=== PATIENT | male | born 1935 | race Two or more races ===

== ENCOUNTER 2023-09-13 09:35 | Inpatient (IN) | payer OTHER, MEDICAID ==
[~2023-09-13] VITALS: Ht 162.6 cm; Wt 57.1 kg
[~2023-09-13 09:35] MED LIST: ASPI-498 PO; ATOR20TA50 PO; CALALOT17; DIPH25TA26; DUTA0.5C11; FURO20TA3 PO; LISI10TA34 PO; METF-370; SITA50TA; TAMS-35
[2023-09-13 10:25] LABS: Basophils # (auto) 0 10 ^3/uL (0-0.2); Basophils % (auto) 0.1 % (0.0-2.0); Eosinophils # (auto) 0.1 10 ^3/uL (0-0.8); Hemoglobin 7.4 g/dL (13.5-17.5); Monocytes # (auto) 0.9 10 ^3/uL (0-1.3); Red Cell Distribution Width 15.4 % (11.8-14.3); White Blood Cell 23.4 10^3/uL (4.4-10.8)
[2023-09-13 10:27] LABS: Eosinophils % (auto) 0.3 % (0.0-7.0); Hematocrit 22.9 % (41.0-53.0); Lymphocytes % (auto) 4.5 % (10.0-50.0); Mean Corpuscular Hemoglobin 28.4 pg (28.0-32.0); Mean Corpuscular Hgb Conc. 32.3 g/dL (32.0-36.0); Mean Corpuscular Volume 88.1 fL (80.0-100.0); Monocytes % (auto) 3.9 % (0.0-12.0); Neutrophils # (auto) 21.3 10 ^3/uL (1.6-8.6); Neutrophils % (auto) 91.2 % (37.0-80.0)
[2023-09-13] MEDS ORDERED: SODIUM CHLORIDE 0.9% 1,000 ML IV ONE ×2 (10:30)
[2023-09-13 10:35] LABS: Alanine Aminotransferase 16 U/L (7-40); Albumin 3.1 g/dL (3.2-4.8); Alkaline Phosphatase 74 U/L (46-116); Anion Gap 7 (5-15); Aspartate Aminotransferase 27 U/L (13-40); BUN/Creatinine Ratio 46.2 (10.0-20.0); Bilirubin, Total 0.7 mg/dL (0.2-1.0); Blood Urea Nitrogen 78 mg/dL (9-23); Carbon Dioxide 25 mmol/L (20-30); Chloride 102 mmol/L (98-107); Glucose 231 mg/dL (74-106); Potassium 5.5 mmol/L (3.5-5.1); Sodium 134 mmol/L (136-145)
[2023-09-13 11:25] VITALS: PULSE 101; RESP 19; O2SAT 99
[2023-09-13 12:14] LABS: Amphetamine Screen, Urine Neg (NEGATIVE)
[2023-09-13 12:15] LABS: Barbiturate Scree,Urine Neg (NEGATIVE); Benzodiazephine Screen, Urine Neg (NEGATIVE); Cannabinoid Screen, Urine Neg (NEGATIVE); Cocaine Screen, Urine Neg (NEGATIVE); Opiate Scree,Urine Neg (NEGATIVE); Phencyclidine Screen, Urine Neg (NEGATIVE)
[2023-09-13 12:28] LABS: Urine Bacteria NONE SEEN /hpf (None Seen); Urine Blood Negative /uL (Negative); Urine Clarity Clear (Clear); Urine Color Yellow (Yellow); Urine Protein, UAD Negative (Negative); Urine Specific Gravity 1.012 (1.001-1.035); Urine Urobilinogen Normal (Negative); Urine WBC 1 /hpf (0 - 3)
[2023-09-13] MEDS ORDERED: cefTRIAXone 1GM/50ML D5W 50 ML IV ONE (15:45)
[2023-09-13] MEDS ORDERED: SODIUM CHLORIDE 0.9% 500 ML IV ONE ×2 (16:15→18:45)
[2023-09-13] MEDS ORDERED: DOPamine 1600MCG/ML D5W 250 ML IV SCH (18:00)
[2023-09-13] MEDS: NOREPINEPHRINE 8 MG/250ML KIT 250 ML IV SCH (19:10)
[2023-09-13 19:30] VITALS: PULSE 111; RESP 16; O2SAT 99
[2023-09-13 19:49] LABS: INR 1.11 (0.9-1.15); Partial Thromboplastin Time 32.6 SEC (24.5-34.5); Prothrombin Time 11.6 sec (9.3-11.8)
[2023-09-13] MEDS ORDERED: NITROGLYCERIN 0.4 MG SL TAB SL PRN (20:45)
[2023-09-13] MEDS ORDERED: ACETAMINOPHEN 325 MG TAB PO PRN (20:45)
[2023-09-13] MEDS ORDERED: AZITHROMYCIN 500MG/ 250ML 250 ML IV ONE (20:45)
[2023-09-13] MEDS ORDERED: ONDANSETRON HCL 4 MG/2 ML VIAL IV PRN (20:45)
[2023-09-13] MEDS ORDERED: DEXTROSE (50%) 50ML SYRG IV PRN (20:45)
[2023-09-13] MEDS ORDERED: MORPHINE SULFATE INJ 2 MG/ml SYRG IV PRN (20:45)
[2023-09-13] MEDS: SODIUM CHLORIDE 0.9% 1,000 ML IV SCH (21:30)
[2023-09-13 21:51] LABS: Basophils # (auto) 0 10 ^3/uL (0-0.2); Basophils % (auto) 0.1 % (0.0-2.0); Eosinophils # (auto) 0.3 10 ^3/uL (0-0.8); Lymphocytes # (auto) 1.2 10 ^3/uL (0.4-5.4); Monocytes # (auto) 0.8 10 ^3/uL (0-1.3); Neutrophils % (auto) 87.7 % (37.0-80.0)
[2023-09-13 21:53] LABS: Eosinophils % (auto) 1.5 % (0.0-7.0); Hematocrit 21.5 % (41.0-53.0); Lymphocytes % (auto) 6.6 % (10.0-50.0); Mean Corpuscular Hemoglobin 28.8 pg (28.0-32.0); Mean Corpuscular Hgb Conc. 31.9 g/dL (32.0-36.0); Mean Corpuscular Volume 90.2 fL (80.0-100.0); Monocytes % (auto) 4.1 % (0.0-12.0); Neutrophils # (auto) 16.3 10 ^3/uL (1.6-8.6); Nucleated Red Blood Cells % 0.1 %; Red Blood Cells 2.39 10^6/uL (4.5-5.90); Red Cell Distribution Width 15.2 % (11.8-14.3); White Blood Cell 18.6 10^3/uL (4.4-10.8)
[2023-09-13 21:57] LABS: Hemoglobin 6.9 g/dL (13.5-17.5)
[2023-09-13 21:59] LABS: Alanine Aminotransferase 10 U/L (7-40); Alkaline Phosphatase 70 U/L (46-116); Calcium 8.1 mg/dL (8.7-10.4); Carbon Dioxide 23 mmol/L (20-30)
[2023-09-13 22:00] LABS: Albumin 2.8 g/dL (3.2-4.8); Anion Gap 6 (5-15); Aspartate Aminotransferase 24 U/L (13-40); BUN/Creatinine Ratio 39.6 (10.0-20.0); Bilirubin, Total 0.4 mg/dL (0.2-1.0); Potassium 4.8 mmol/L (3.5-5.1); Sodium 141 mmol/L (136-145); Total Protein 4.6 g/dL (5.7-8.2)
[2023-09-13 22:11] LABS: Blood Urea Nitrogen 44 mg/dL (9-23); Chloride 112 mmol/L (98-107)
[2023-09-13 22:31] LABS: Glucose 190 mg/dL (74-106)
[2023-09-14] VITALS (90 sets, daily range): BP systolic 62–134; BP diastolic 13–93; PULSE 84–127; RESP 12–28; TEMP 97.8–98.7; O2SAT 88–100
[2023-09-14] MEDS: ACCU-CHEK COMFORT CURVE STRIP VI SCH ×5 (00:09→23:33)
[2023-09-14] MEDS: InsuLIN REG 1unit/0.01ml Soln (100units/ml) SC SCH ×5 (00:25→23:33)
[2023-09-14] MEDS: NOREPINEPHRINE 8 MG/250ML KIT 250 ML IV SCH ×2 (05:17→13:10)
[2023-09-14 05:57] LABS: Basophils # (auto) 0 10 ^3/uL (0-0.2); Basophils % (auto) 0.1 % (0.0-2.0); Eosinophils # (auto) 0.2 10 ^3/uL (0-0.8); Eosinophils % (auto) 1.1 % (0.0-7.0); Hematocrit 30.6 % (41.0-53.0); Hemoglobin 9.9 g/dL (13.5-17.5); Lymphocytes # (auto) 1.3 10 ^3/uL (0.4-5.4); Lymphocytes % (auto) 6.4 % (10.0-50.0); Mean Corpuscular Hemoglobin 28.9 pg (28.0-32.0); Mean Corpuscular Hgb Conc. 32.3 g/dL (32.0-36.0); Mean Corpuscular Volume 89.4 fL (80.0-100.0); Monocytes % (auto) 5.1 % (0.0-12.0); Neutrophils # (auto) 18.1 10 ^3/uL (1.6-8.6); Neutrophils % (auto) 87.3 % (37.0-80.0); Nucleated Red Blood Cells % 0.1 %; Red Blood Cells 3.43 10^6/uL (4.5-5.90); Red Cell Distribution Width 14.4 % (11.8-14.3); White Blood Cell 20.7 10^3/uL (4.4-10.8)
[2023-09-14 06:08] LABS: Alanine Aminotransferase 14 U/L (7-40); Albumin 3.1 g/dL (3.2-4.8); Alkaline Phosphatase 79 U/L (46-116); Anion Gap 9 (5-15); BUN/Creatinine Ratio 31.3 (10.0-20.0); Calcium 8.4 mg/dL (8.7-10.4); Carbon Dioxide 19 mmol/L (20-30); Chloride 111 mmol/L (98-107); Potassium 4.3 mmol/L (3.5-5.1); Sodium 139 mmol/L (136-145)
[2023-09-14 06:09] LABS: Aspartate Aminotransferase 28 U/L (13-40); Bilirubin, Total 0.6 mg/dL (0.2-1.0); Total Protein 5.2 g/dL (5.7-8.2)
[2023-09-14 06:12] LABS: Blood Urea Nitrogen 31 mg/dL (9-23)
[2023-09-14 08:00] LABS: Glucose 207 mg/dL (74-106)
[2023-09-14] MEDS: SODIUM CHLORIDE 0.9% 1,000 ML IV SCH ×2 (08:35→19:49)
[2023-09-14] MEDS ORDERED: cefTRIAXone 1GM/50ML D5W 50 ML IV SCH (09:00)
[2023-09-14] MEDS ORDERED: LORazepam 2MG/ML-1ML VIAL IV PRN (09:45)
[2023-09-14] MEDS ORDERED: AZITHROMYCIN 500MG/ 250ML 250 ML IV SCH (10:00)
[2023-09-14] MEDS: DOXYCYCLINE 100MG/250ML 250 ML IV SCH ×2 (10:30→20:59)
[2023-09-14] MEDS ORDERED: LACTULOSE 20Gm/30ML SOLN PO ONE (10:30)
[2023-09-14 12:33] LABS: Folate (Folic Acid) 16.63 ng/mL (>5.38)
[2023-09-14] MEDS ORDERED: MORPHINE SULFATE INJ 2 MG/ml SYRG IV ONE (12:45)
[2023-09-14] MEDS ORDERED: MORPHINE SULFATE INJ 2 MG/ml SYRG IV PRN (13:15)
[2023-09-14] MEDS ORDERED: ACETAMINOPHEN 500 MG TAB PO PRN (13:15)
[2023-09-14] MEDS ORDERED: ONDANSETRON HCL 4 MG/2 ML VIAL IV PRN (13:15)
[2023-09-14] MEDS ORDERED: HYDROcodone-ACET 5/325MG TAB PO PRN (13:15)
[2023-09-14] MEDS: PIPERACILLIN-TAZOB 3.375GM 100 ML IV SCH ×2 (14:00→20:59)
[2023-09-14] MEDS ORDERED: LIDOCAINE 1% (LOCAL ANESTH.) PF 5ml SDV ID ONE (14:45)
[2023-09-14] MEDS: DOCUSATE SOD 100 MG CAP PO SCH (20:59)
[2023-09-14] MEDS: SODIUM CHLOR 0.9% PF (SALINE LOCK) 10ML VIAL/SYR IV SCH (21:00)
[2023-09-15] VITALS (92 sets, daily range): BP systolic 87–140; BP diastolic 40–89; PULSE 80–135; RESP 10–27; TEMP 98–98.4; O2SAT 91–100
[2023-09-15 04:22] LABS: Hemoglobin 7.6 g/dL (13.5-17.5)
[2023-09-15 04:26] LABS: Basophils # (auto) 0 10 ^3/uL (0-0.2); Basophils % (auto) 0.1 % (0.0-2.0); Eosinophils # (auto) 0.4 10 ^3/uL (0-0.8); Eosinophils % (auto) 4.5 % (0.0-7.0); Hematocrit 22.7 % (41.0-53.0); Lymphocytes # (auto) 1.5 10 ^3/uL (0.4-5.4); Lymphocytes % (auto) 16.4 % (10.0-50.0); Mean Corpuscular Hemoglobin 29.7 pg (28.0-32.0); Mean Corpuscular Hgb Conc. 33.5 g/dL (32.0-36.0); Mean Corpuscular Volume 88.8 fL (80.0-100.0); Monocytes # (auto) 0.6 10 ^3/uL (0-1.3); Monocytes % (auto) 6.3 % (0.0-12.0); Neutrophils # (auto) 6.6 10 ^3/uL (1.6-8.6); Neutrophils % (auto) 72.7 % (37.0-80.0); Nucleated Red Blood Cells % 0.1 %; Red Blood Cells 2.56 10^6/uL (4.5-5.90); Red Cell Distribution Width 14.4 % (11.8-14.3)
[2023-09-15 04:39] LABS: Alanine Aminotransferase 17 U/L (7-40); Albumin 2.4 g/dL (3.2-4.8); Alkaline Phosphatase 61 U/L (46-116); Aspartate Aminotransferase 22 U/L (13-40); BUN/Creatinine Ratio 40.3 (10.0-20.0); Blood Urea Nitrogen 27 mg/dL (9-23); Calcium 7.6 mg/dL (8.5-10.1); Chloride 111 mmol/L (98-107); Glucose 123 mg/dL (74-106); Potassium 3.6 mmol/L (3.5-5.1); Sodium 140 mmol/L (136-145)
[2023-09-15 04:40] LABS: Bilirubin, Total 0.5 mg/dL (0.2-1.0); Total Protein 4.1 g/dL (5.7-8.2)
[2023-09-15 04:48] LABS: Anion Gap 7 (5-15); Carbon Dioxide 22 mmol/L (20-30)
[2023-09-15] MEDS: PIPERACILLIN-TAZOB 3.375GM 100 ML IV SCH ×3 (05:15→21:23)
[2023-09-15] MEDS: InsuLIN REG 1unit/0.01ml Soln (100units/ml) SC SCH ×4 (05:19→23:27)
[2023-09-15] MEDS: ACCU-CHEK COMFORT CURVE STRIP VI SCH ×4 (05:19→23:32)
[2023-09-15] MEDS: SODIUM CHLOR 0.9% PF (SALINE LOCK) 10ML VIAL/SYR IV SCH ×2 (07:26→21:24)
[2023-09-15] MEDS: PANTOPRAZOLE 40 MG TAB PO SCH (08:13)
[2023-09-15] MEDS: DOXYCYCLINE 100MG/250ML 250 ML IV SCH ×2 (08:13→21:23)
[2023-09-15] MEDS: DOCUSATE SOD 100 MG CAP PO SCH ×2 (08:14→21:23)
[2023-09-15] MEDS: DexAMETHasone 4 MG TAB PO SCH (08:53)
[2023-09-15] MEDS: SODIUM CHLORIDE 0.9% 1,000 ML IV SCH ×2 (10:24→23:32)
[2023-09-15] MEDS: NOREPINEPHRINE 8 MG/250ML KIT 250 ML IV SCH (13:13)
[2023-09-16] VITALS (53 sets, daily range): BP systolic 93–147; BP diastolic 42–74; PULSE 71–110; RESP 11–25; TEMP 97.7–98.4; O2SAT 92–100
[2023-09-16 04:23] LABS: Basophils # (auto) 0 10 ^3/uL (0-0.2); Eosinophils # (auto) 0 10 ^3/uL (0-0.8); Monocytes # (auto) 0.3 10 ^3/uL (0-1.3); Neutrophils # (auto) 7.2 10 ^3/uL (1.6-8.6); Red Cell Distribution Width 14.6 % (11.8-14.3)
[2023-09-16 04:24] LABS: Basophils % (auto) 0.1 % (0.0-2.0); Hematocrit 23.8 % (41.0-53.0); Hemoglobin 7.9 g/dL (13.5-17.5); Lymphocytes % (auto) 12.2 % (10.0-50.0); Mean Corpuscular Hemoglobin 29.4 pg (28.0-32.0); Mean Corpuscular Hgb Conc. 33.4 g/dL (32.0-36.0); Mean Corpuscular Volume 88.2 fL (80.0-100.0); Monocytes % (auto) 3.2 % (0.0-12.0); Neutrophils % (auto) 84.5 % (37.0-80.0); White Blood Cell 8.5 10^3/uL (4.4-10.8)
[2023-09-16 04:32] LABS: Chloride 110 mmol/L (98-107); Potassium 3.8 mmol/L (3.5-5.1)
[2023-09-16 04:33] LABS: Anion Gap 2 (5-15); Calcium 7.6 mg/dL (8.7-10.4); Carbon Dioxide 22 mmol/L (20-30)
[2023-09-16 04:38] LABS: BUN/Creatinine Ratio 25.4 (10.0-20.0); Blood Urea Nitrogen 16 mg/dL (9-23); Glucose 205 mg/dL (74-106)
[2023-09-16 04:42] LABS: Sodium 134 mmol/L (136-145)
[2023-09-16] MEDS: PIPERACILLIN-TAZOB 3.375GM 100 ML IV SCH ×3 (05:26→21:38)
[2023-09-16] MEDS: InsuLIN REG 1unit/0.01ml Soln (100units/ml) SC SCH ×4 (05:30→23:26)
[2023-09-16] MEDS: ACCU-CHEK COMFORT CURVE STRIP VI SCH ×4 (05:45→23:18)
[2023-09-16] MEDS: SODIUM CHLOR 0.9% PF (SALINE LOCK) 10ML VIAL/SYR IV SCH ×2 (09:30→21:39)
[2023-09-16] MEDS: PANTOPRAZOLE 40 MG TAB PO SCH (09:31)
[2023-09-16] MEDS: DexAMETHasone 4 MG TAB PO SCH (09:31)
[2023-09-16] MEDS: DOXYCYCLINE 100MG/250ML 250 ML IV SCH ×2 (09:31→21:38)
[2023-09-16] MEDS: DOCUSATE SOD 100 MG CAP PO SCH ×2 (09:31→21:38)
[2023-09-16] MEDS: SODIUM CHLORIDE 0.9% 1,000 ML IV SCH ×2 (11:15→17:26)
[2023-09-16] MEDS: NOREPINEPHRINE 8 MG/250ML KIT 250 ML IV SCH (17:22)
[2023-09-17] VITALS (30 sets, daily range): BP systolic 105–163; BP diastolic 58–79; PULSE 68–112; RESP 12–30; TEMP 97.7–98.8; O2SAT 96–100
[2023-09-17] MEDS: SODIUM CHLORIDE 0.9% 1,000 ML IV SCH (05:50)
[2023-09-17] MEDS: PIPERACILLIN-TAZOB 3.375GM 100 ML IV SCH ×3 (05:50→22:00)
[2023-09-17] MEDS: ACCU-CHEK COMFORT CURVE STRIP VI SCH ×3 (05:53→18:11)
[2023-09-17] MEDS: InsuLIN REG 1unit/0.01ml Soln (100units/ml) SC SCH ×3 (05:55→18:14)
[2023-09-17 06:01] LABS: Basophils # (auto) 0 10 ^3/uL (0-0.2); Eosinophils # (auto) 0 10 ^3/uL (0-0.8); Eosinophils % (auto) 0.1 % (0.0-7.0); Hemoglobin 8.4 g/dL (13.5-17.5); Lymphocytes # (auto) 1.4 10 ^3/uL (0.4-5.4); Lymphocytes % (auto) 12.3 % (10.0-50.0); Monocytes # (auto) 0.7 10 ^3/uL (0-1.3); Neutrophils # (auto) 9.3 10 ^3/uL (1.6-8.6)
[2023-09-17 06:03] LABS: Hematocrit 24.9 % (41.0-53.0); Mean Corpuscular Hemoglobin 29.9 pg (28.0-32.0); Mean Corpuscular Hgb Conc. 33.6 g/dL (32.0-36.0); Mean Corpuscular Volume 88.8 fL (80.0-100.0); Monocytes % (auto) 6.4 % (0.0-12.0); Neutrophils % (auto) 81.2 % (37.0-80.0); Red Cell Distribution Width 14.6 % (11.8-14.3); White Blood Cell 11.5 10^3/uL (4.4-10.8)
[2023-09-17 06:08] LABS: Chloride 110 mmol/L (98-107); Potassium 3.7 mmol/L (3.5-5.1); Sodium 136 mmol/L (136-145)
[2023-09-17 06:09] LABS: Anion Gap 4 (5-15); Calcium 7.6 mg/dL (8.7-10.4); Carbon Dioxide 22 mmol/L (20-30)
[2023-09-17 06:14] LABS: BUN/Creatinine Ratio 21.3 (10.0-20.0); Blood Urea Nitrogen 13 mg/dL (9-23); Glucose 195 mg/dL (74-106)
[2023-09-17] MEDS: DOXYCYCLINE 100MG/250ML 250 ML IV SCH ×2 (09:45→22:30)
[2023-09-17] MEDS: PANTOPRAZOLE 40 MG TAB PO SCH (09:45)
[2023-09-17] MEDS: DOCUSATE SOD 100 MG CAP PO SCH ×2 (09:45→22:00)
[2023-09-17] MEDS: SODIUM CHLOR 0.9% PF (SALINE LOCK) 10ML VIAL/SYR IV SCH ×2 (09:48→22:00)
[2023-09-17] MEDS: DexAMETHasone 4 MG TAB PO SCH (09:49)
[2023-09-17] MEDS: NOREPINEPHRINE 8 MG/250ML KIT 250 ML IV SCH (18:45)
[2023-09-18] VITALS (23 sets, daily range): BP systolic 78–134; BP diastolic 42–70; PULSE 62–100; RESP 12–30; TEMP 97–98.6; O2SAT 96–100
[2023-09-18] MEDS: ACCU-CHEK COMFORT CURVE STRIP VI SCH ×5 (00:23→23:52)
[2023-09-18] MEDS: InsuLIN REG 1unit/0.01ml Soln (100units/ml) SC SCH ×5 (00:28→23:53)
[2023-09-18] MEDS: SODIUM CHLORIDE 0.9% 1,000 ML IV SCH (08:50)
[2023-09-18] MEDS: PIPERACILLIN-TAZOB 3.375GM 100 ML IV SCH ×3 (08:50→21:46)
[2023-09-18] MEDS: DOCUSATE SOD 100 MG CAP PO SCH ×2 (10:06→21:47)
[2023-09-18] MEDS: PANTOPRAZOLE 40 MG TAB PO SCH (10:06)
[2023-09-18] MEDS: DexAMETHasone 4 MG TAB PO SCH (10:09)
[2023-09-18] MEDS: SODIUM CHLOR 0.9% PF (SALINE LOCK) 10ML VIAL/SYR IV SCH ×2 (10:11→21:47)
[2023-09-18] MEDS ORDERED: FUROSEMIDE 40 MG/4 ML VIAL IV ONE (11:15)
[2023-09-18] MEDS: DOXYCYCLINE 100MG/250ML 250 ML IV SCH ×2 (11:26→23:01)
[2023-09-19] VITALS (30 sets, daily range): BP systolic 107–139; BP diastolic 48–98; PULSE 61–88; RESP 11–28; TEMP 97.6–98.2; O2SAT 94–99
[2023-09-19] MEDS: ACCU-CHEK COMFORT CURVE STRIP VI SCH ×4 (06:05→23:48)
[2023-09-19] MEDS: PIPERACILLIN-TAZOB 3.375GM 100 ML IV SCH ×3 (06:05→21:58)
[2023-09-19] MEDS: InsuLIN REG 1unit/0.01ml Soln (100units/ml) SC SCH ×4 (06:07→23:47)
[2023-09-19 06:29] LABS: Anion Gap 8 (5-15); Carbon Dioxide 22 mmol/L (20-30); Chloride 108 mmol/L (98-107); Potassium 3.2 mmol/L (3.5-5.1); Sodium 138 mmol/L (136-145)
[2023-09-19 06:30] LABS: Calcium 7.8 mg/dL (8.7-10.4); Hematocrit 27.8 % (41.0-53.0); Hemoglobin 9.2 g/dL (13.5-17.5); Red Blood Cells 3.16 10^6/uL (4.5-5.90); Red Cell Distribution Width 15.1 % (11.8-14.3); White Blood Cell 13.5 10^3/uL (4.4-10.8)
[2023-09-19 06:34] LABS: Band Neutrophils % (manual) 0; Basophils % (manual) 0 (0.0-2.0); Blast Cells 0; Eosinophils % (manual) 0 (0-7); Metamyelocytes % 0; Myelocytes % 0; Promyelocytes % 0; Reactive Lymphocytes 0
[2023-09-19 06:35] LABS: Glucose 159 mg/dL (74-106)
[2023-09-19 06:36] LABS: BUN/Creatinine Ratio 16.9 (10.0-20.0); Blood Urea Nitrogen 13 mg/dL (9-23); Magnesium 1.5 mg/dL (1.6-2.6)
[2023-09-19 08:17] LABS: Lymphocytes % (manual) 16 (10.0-50.0); Monocytes % (manual) 7 (0-12)
[2023-09-19 08:18] LABS: Anisocytosis Slight; Platelet Estimate Adequate
[2023-09-19] MEDS ORDERED: POTASSIUM CHL 20 Meq TABLET PO ONE (08:30)
[2023-09-19] MEDS: DOCUSATE SOD 100 MG CAP PO SCH ×2 (10:00→21:58)
[2023-09-19] MEDS: MAGNESIUM SULFATE 1GM/100ML 100 ML IV SCH ×2 (10:16→11:18)
[2023-09-19] MEDS: DOXYCYCLINE 100MG/250ML 250 ML IV SCH ×2 (10:16→22:01)
[2023-09-19] MEDS: DexAMETHasone 4 MG TAB PO SCH (10:16)
[2023-09-19] MEDS: PANTOPRAZOLE 40 MG TAB PO SCH (10:16)
[2023-09-19] MEDS: SODIUM CHLOR 0.9% PF (SALINE LOCK) 10ML VIAL/SYR IV SCH ×2 (10:18→21:53)
[2023-09-20] MEDS: PIPERACILLIN-TAZOB 3.375GM 100 ML IV SCH ×2 (05:31→14:27)
[2023-09-20] MEDS: ACCU-CHEK COMFORT CURVE STRIP VI SCH ×3 (05:37→17:35)
[2023-09-20 05:55] LABS: Calcium 7.5 mg/dL (8.7-10.4); Chloride 108 mmol/L (98-107); Potassium 3.6 mmol/L (3.5-5.1); Sodium 137 mmol/L (136-145)
[2023-09-20 05:56] LABS: Anion Gap 7 (5-15); Carbon Dioxide 22 mmol/L (20-30)
[2023-09-20] MEDS: InsuLIN REG 1unit/0.01ml Soln (100units/ml) SC SCH ×3 (05:56→17:50)
[2023-09-20 06:01] LABS: Glucose 211 mg/dL (74-106)
[2023-09-20 06:02] LABS: BUN/Creatinine Ratio 17.1 (10.0-20.0); Blood Urea Nitrogen 13 mg/dL (9-23); Magnesium 1.6 mg/dL (1.6-2.6)
[2023-09-20 07:11] LABS: Hematocrit 27.3 % (41.0-53.0); Hemoglobin 8.8 g/dL (13.5-17.5); Mean Corpuscular Hemoglobin 29.2 pg (28.0-32.0); Mean Corpuscular Hgb Conc. 32.1 g/dL (32.0-36.0); Red Cell Distribution Width 15.4 % (11.8-14.3); White Blood Cell 12.9 10^3/uL (4.4-10.8)
[2023-09-20 07:21] LABS: Band Neutrophils % (manual) 0; Basophils % (manual) 0 (0.0-2.0); Blast Cells 0; Eosinophils % (manual) 0 (0-7); Myelocytes % 0; Promyelocytes % 0; Reactive Lymphocytes 0
[2023-09-20 08:00] VITALS: PULSE 88; RESP 23; O2SAT 95
[2023-09-20 08:41] LABS: Lymphocytes % (manual) 11 (10.0-50.0); Metamyelocytes % 1; Monocytes % (manual) 5 (0-12); Platelet Estimate Adequate
[2023-09-20 09:00] VITALS: BP 108/56; PULSE 72; RESP 18; TEMP 97.8; O2SAT 94
[2023-09-20] MEDS: DexAMETHasone 4 MG TAB PO SCH (09:55)
[2023-09-20] MEDS: PANTOPRAZOLE 40 MG TAB PO SCH (09:56)
[2023-09-20] MEDS: DOCUSATE SOD 100 MG CAP PO SCH (09:56)
[2023-09-20] MEDS: DOXYCYCLINE 100MG/250ML 250 ML IV SCH (09:59)
[2023-09-20] MEDS: SODIUM CHLOR 0.9% PF (SALINE LOCK) 10ML VIAL/SYR IV SCH (09:59)
[2023-09-20 13:00] VITALS: BP 105/48; PULSE 68; RESP 16; TEMP 98.2; O2SAT 92
[2023-09-20 17:00] VITALS: BP 115/53; PULSE 75; RESP 16; TEMP 98; O2SAT 96
[2023-09-20 19:01] VITALS: BP 126/66; PULSE 75; RESP 16; TEMP 36.7; O2SAT 96
== END 2023-09-20 21:55 | disposition short-term general hospital (02) | DRG 871 ==
LOC: ER 09:35 → EDBD 09:35 → TELE 20:38 → ICU WEST 09-14 02:00 → DOU IN ICU 09-17 07:35 → TELE-EAST 09-19 23:47
PROVIDERS: ADMIT Nurse Practitioner; ATTEND Internal Medicine Geriatric Medicine
PROC: 30233N1 Transfusion of Nonautologous Red Blood Cells into Peripheral Vein, Percutaneous Approach (ICD-10-PCS; principal; 2023-09-14)
DX: A41.9 Sepsis, unspecified organism (principal); G93.41 Metabolic encephalopathy; R65.21 Severe sepsis with septic shock; J15.69 Pneumonia due to other Gram-negative bacteria; J15.9 Unspecified bacterial pneumonia; J96.01 Acute respiratory failure with hypoxia; S22.070A Wedge compression fracture of T9-T10 vertebra, initial encounter for closed fracture; S32.010A Wedge compression fracture of first lumbar vertebra, initial encounter for closed fracture; N13.8 Other obstructive and reflux uropathy; N17.9 Acute kidney failure, unspecified; E44.0 Moderate protein-calorie malnutrition; G72.81 Critical illness myopathy; G82.20 Paraplegia, unspecified; I48.19 Other persistent atrial fibrillation; M51.06 Intervertebral disc disorders with myelopathy, lumbar region; D64.9 Anemia, unspecified; K59.00 Constipation, unspecified; N40.1 Benign prostatic hyperplasia with lower urinary tract symptoms; E03.9 Hypothyroidism, unspecified; E11.21 Type 2 diabetes mellitus with diabetic nephropathy; E11.65 Type 2 diabetes mellitus with hyperglycemia; G89.29 Other chronic pain; X58.XXXA Exposure to other specified factors, initial encounter; Z68.21 Body mass index [BMI] 21.0-21.9, adult; F03.90 Unspecified dementia, unspecified severity, without behavioral disturbance, psychotic disturbance, mood disturbance, and anxiety; E78.5 Hyperlipidemia, unspecified; E86.0 Dehydration; E87.5 Hyperkalemia; E78.00 Pure hypercholesterolemia, unspecified; I10 Essential (primary) hypertension; M48.00 Spinal stenosis, site unspecified; Z79.82 Long term (current) use of aspirin; Z79.899 Other long term (current) drug therapy; Z90.49 Acquired absence of other specified parts of digestive tract; Z83.3 Family history of diabetes mellitus; Y93.89 Activity, other specified; Y92.89 Other specified places as the place of occurrence of the external cause; Y99.8 Other external cause status
CPT/HCPCS: 36415; 36430; 36569; 70450; 70551; 71045; 72128; 72131; 72146; 72148; 74176; 80048; 80053; 80307; 81001; 82270; 82607; 82746; 82962; 83605; 83735; 83880; 84443; 84484; 85007; 85025; 85027; 85610; 85730; 86850; 86900; 86901; 86920; 87040; 87081; 93005; 95819; 96365; 97163; 99291; G0378; J0696; J1815; J2543; J3490